=== PATIENT | male | born 2005 | race Caucasian/White ===

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

== ENCOUNTER 2025-06-20 12:48 | Outpatient (AMB) | payer BC, SELFPAY ==
--- NOTE | 2025-06-20 12:58 | A.OFFPC_ITS ---
Vital Signs 06/20/25 13:00 Height 5 ft 8.5 in Weight 167 lb BMI 25.0 BP 118/74 Blood Pressure Location Lt brachial Position Sitting Respiration 14 Pulse 57 Pulse Source Pulse Oximeter Temp 98.1 F Temp Source Oral Pulse Oximetry (%) 97 Oxygen Delivery Method Room Air Intake Visit Reasons: inflamed hemorrhoid / Kamilla's pt. Intake Note: Hemorrhoid Psychiatry Teacher Required: No Allergies No Known Allergies Allergy (Verified 06/20/25 13:08) Medication List - Last Reconciled 06/20/25 by CHECO Bagley No Known Home Meds Tobacco use date assessed: 06/20/25 Dental Screening Dental Screen Date: 06/20/25 Did you have a dental visit in the last 12 months?: Yes Did you have a dental problem in the last 6 months where you did not have access to dental care?: No Was dental information given to patient?: Patient has dentist HPI HPI Comments History of Present Illness Details History of Present Illness The patient is a 20 year old male presenting with a persistent hemorrhoid. Hemorrhoids: - The patient reports a hemorrhoid that has been persistent for over a month, which he describes as a nuisance and an irritating feeling. - He has a history of hemorrhoids occurr ing approximately once a year, but they typically resolve within a week. - He denies any associated blood in the stool or abdominal pain. - The irritation occurs about once a day for 10-15 minutes, sometimes interfering with sleep. - Home remedies used include over-the-co unter creams, wipes, and ibuprofen, which provide some relief. - He has also been trying to increase hi s fiber intake. Past Medical History - Recurrent hemorrhoids, occurring about once a year. Review of Systems - Gastrointestinal: Reports rectal irrit ation for over a month and normal bowel movements. Denies hematochezia, abdominal pain, or straining with defecation. - General: Denies any trauma to the anus or rectum. Physical Exam General: Well developed, well nourished, in no acute distress. Appears stated age. Head: Normocephalic, atraumatic. Eyes: Pupils are equal, round and reactive to light and accommodation. Conjunctivae are clear. Vision grossly normal. Lungs: Speaking in full sentences Abdomen: Bowel sounds present in all quadrants. The abdomen is soft, nontender, with no masses or organomegaly noted. No hernias are noted. : offered and declined special warfare combatant crewman; no external hemorrhouds, normal anal tone, YAJAIRA done 1 palpable hemorrhoid 3 oclock position, negative OBS x 1 Psych: Mood and affect appropriate. Medical Decision Making The patient is a 20-year-old male presenting with a hemorrhoid that has persisted for over a month, which is longer than his typical episodes. He denies alarm symptoms such as bleeding. The physical examination confirmed a single, inflamed internal hemorrhoid. Given that the patient's symptoms are limited to intermittent irritation and his condition is not severe, a referral for specialist intervention such as ligation is not yet warranted. A conservative approach will be initiated with prescription internal suppositories to target the internal inflammation, as [id number] topical treatments have not provided complete resolution. Continuation of ibuprofen 600 mg three times daily for its anti-inflammatory effects and a high-fiber diet to ensure soft stools and prevent straining are also recommended. The patient will be instructed to follow up if his symptoms do not improve with this regimen. Plan 1. Hemorrhoids - The examination revealed a single infl comfort internal hemorrhoid. - A trial of internal suppositories will be initiated to treat the inflammation. - Continue ibuprofen 600 mg three times daily to help reduce inflammation. - Recommended increasing fiber intake an d maintaining normal bowel movements without straining to help reduce recurrence. - A prescription for suppositories will be sent to the [facility] in [facility]. - If the condition persists or does not improve, a referral to a hemorrhoid specialist will be considered. Patient Instructions - Use the prescribed internal suppositor ies until your symptoms improve. You may use a water-based lubricant to help with insertion. - Be aware that the suppository will dannielle t, which may cause some discharge. This medication is for inflammation and will not cause a bowel movement. - Continue taking ibuprofen 600 mg three times a day to help with inflammation. - Maintain a diet high in fiber and avoi d straining during bowel movements to help prevent the hemorrhoid from recurring. - Your prescription will be sent to the [facility] in [facility]. - If your condition does not get better, please contact us by sending a message. Consent Verbal consent was obtained from the patient for a rectal examination after the procedure was explained. He was informed that the examination could be stopped at any time upon his request. The patient declined the offer of having a special warfare combatant crewman present during the exam. Patient was informed and verbally consented to the use of an ambient scribe for clinic note documentation during this visit. [facility] Family History (Updated 11/30/23 @ 09:05 by Eneida Perez CMA) Mother Prediabetes Thyroid disorder Father Alcoholism Social History Housing: House Patient Tobacco Use Status: Never used Tobacco e-Cigarette/Vaping Use: Never Used Second Hand Smoke Exposure: No service: No Current occupational status: student Cognitive needs: No Hearing needs: No Vision needs: No Questionnaire PHQ-9 Over the last 2 weeks, how often have you been bothered by any of the following problems? 1. Little interest or pleasure in doing things: not at all 2. Feeling down, depressed, or hopeless: not at all 3. Trouble falling or staying asleep, or sleeping too much: several days 4. Feeling tired or having little energy: not at all 5. Poor appetite or overeating: not at all 6. Feeling bad about yourself - or that you are a failure or have let yourself or your family down: not at all 7. Trouble concentrating on things, such as reading the newspaper or watching television: not at all 8. Moving or speaking so slowly that other people could have noticed. Or the opposite - being so fidgety or restless that you have been moving around a lot more than usual: not at all 9. Thoughts that you would be better off or of hurting yourself in some way : not at all Total score: 1 Depression Screening Interpretation: Negative Depression Screening Done: Yes 81776 - PHQ-9 Billing: Yes Source: Developed by Drs. Chip Chin, Jackie Serrano, Grayson Moreno and colleagues, with an educational axel from [employer]. Thrive Questionnaire Date Thrive assessed: 06/20/25 I am a: Patient What is your living situation today?: I have a steady place to live Within the past 12 months, did the food you bought not last and you didn't have the money to get more?: Never true Within the past 12 months, did you worry whether your food would run out before you got money to buy more?: Never true Do you have trouble paying for medicines?: No Do you have trouble getting transportation to medical appointments?: No Do you have trouble paying your heating and electricity bill?: No Do you have trouble taking care of your child, family member or friend?: No Do you have trouble with day-to-day activities such as bathing, preparing meals, shopping, managing finances, etc.?: No Are you currently unemployed and looking for a job?: I choose not to answer this question Are you interested in more education?: No Please select the resources that you would like help with: None Currently or been in a relationship where the following occur: No concerns reported THRIVE Score: 0 AUDIT C Alcohol Use Questionnaire (AUDIT-C) 1. How often do you have a drink containing alcohol?: 2-4 times a month 2. How many drinks containing alcohol do you have on a typical day when you are drinking?: 1 or 2 3. How often do you have six or more drinks on one occasion?: Never Total Score: 2 Score Reviewed/Action Taken: Yes ROBERTA-7 AMB Questionnaire ROBERTA-7 Date ROBERTA - 7 assessed: 06/20/25 Feeling nervous, anxious, or on edge: 0 = Not at all Not being able to stop or control worryin = Not at all Worrying too much about different things: 0 = Not at all Trouble relaxin = Not at all Being so restless that it is hard to sit still: 0 = Not at all Becoming easily annoyed or irritable: 0 = Not at all Feeling afraid as if something awful might happen: 0 = Not at all Total ROBERTA-7 score (0-4 normal; 5-9 mild; 10-14 moderate; 15-21 severe): 0 Source: Developed by Drs. Chip Chin, Jackie Serrano, Grayson Moreno and colleagues, with an educational axel from [employer]. ROBERTA-7 Assessment Billing ROBERTA-7 Assessment Tool: ROBERTA-7 Assessment 25344 Physical exam (Primary Care) Vital Signs: Last Vital Signs Temp 98.1 F 06/20/25 13:00 Pulse 57 06/20/25 13:00 Resp 14 06/20/25 13:00 BP 118/74 06/20/25 13:00 Pulse Ox 97 06/20/25 13:00 Oxygen Delivery Method Room Air 06/20/25 13:00 BMI result Body Mass Index 25.0 Tobacco/Smoking Status: Tobacco use Status Tobacco use date assessed 06/20/25 06/20/25 13:03 Patient Tobacco Use Status Never used Tobacco 06/20/25 13:03 e-Cigarette/Vaping Use Never Used 06/20/25 13:03 PHQ-9: PHQ-9 Score PHQ-9: Total score 1 06/20/25 13:03 Depression Screening Interpretation: Negative Thrive Assessment: Date of Thrive Assessment Date Thrive assessed 11/30/23 06/20/25 13:03 Currently or been in a relationship where the following occur: No concerns reported Results AMB Fecal Occult Blood X1 AMB Fecal Occult Blood X1 Negative Last Edit by ERNESTO Bagley on 06/20/25 13:17 Coding Level of Care Code Est Pt Level 3 (56037) Add On Problem Visit Only Diagnoses Internal hemorrhoid K64.8 Additional Codes PHQ-9 - 62680 - PHQ-9 Billing: Yes ([id number]) ROBERTA-7 Assessment Billing - ROBERTA-7 Assessment Tool: ROBERTA-7 Assessment 58659 ([id number]) Assessment & Plan Assessment & Plan (1) Internal hemorrhoid: Code(s): K64.8 - Other hemorrhoids Category: Medical Plan . Orders: Orders OBSX1 Today K64.8 - Other hemorrhoids Medications: New hydrocortisone acetate (Anusol-HC) 25 mg AL BEDTIME 12 ea 0RF Patient Instructions: Patient Instructions - Use the prescribed internal suppositories until your symptoms improve. You may use a water-based lubricant to help with insertion. - Be aware that the suppository will melt, which may cause some discharge. This medication is for inflammation and will not cause a bowel movement. - Continue taking ibuprofen 600 mg three times a day to help with inflammation. - Maintain a diet high in fiber and avoid straining during bowel movements to help prevent the hemorrhoid from recurring. - Your prescription will be sent to the [facility] in [facility]. - If your condition does not get better, please contact us by sending a message.
[2025-06-20 13:00] VITALS: BP 118/74; PULSE 57; RESP 14; TEMP 36.7; O2SAT 97; BMI 25.0
== END 2025-06-20 13:18 | disposition home or self-care (01) ==
LOC: HO.HMCFM 12:49
PROVIDERS: PCP Physician Assistant; Visit Provider Nurse Practitioner Family
DX: K64.8 Other hemorrhoids (principal)

== ENCOUNTER 2025-06-20 12:48 | Outpatient (REF) | payer BC, SELFPAY | END 2025-06-20 12:49 | disposition home or self-care (01) | LOC: HO.LAB 12:48 | PROVIDERS: PCP Physician Assistant; Visit Provider Nurse Practitioner Family | DX: Z13.31 Encounter for screening for depression (principal); Z13.39 Encounter for screening examination for other mental health and behavioral disorders | CPT/HCPCS: 96127 ==